=== PATIENT | male | born 1945 | race Caucasian/White ===

== ENCOUNTER 2019-08-20 06:39 | Emergency (ER) | payer MEDICARE ==
--- NOTE | 2019-08-20 07:25 | ED ---
Throat Pain/Nasal Congestion - HPI Summary HPI Summary: 74 year old M presenting to [facility] accompanied by female frame fixer complains of difficulty breathing since 2 months ago, worse since yesterday. Pt is experiencing congested sinuses, difficulty with daily life activities, and depression with multiple trips to physicians in the past 2 months per female frame fixer. ENT reported no structural issues with sinuses. Female frame fixer also states pt has reduced hearing capabilities because the pt does not wear hearing aids due to congestion. Pt reports sore throat, discomfort in the posterior head that radiates to his sinuses, vomiting, lightheadedness, and nausea since yesterday. He denies fever and pain. Hx of HTN, hypercholesterolemia, sinus infections, and melanoma with removal from 10 yrs ago for which there has been no problems since. SHx of no smoking, occasional light alcohol use, and a sedentary lifestyle per female frame fixer. The patient rates the pain 0/10 in severity. Symptoms aggravated by nothing. Symptoms alleviated by over the counter nasal spray. Tylenol sinus has had no effect and the pt is not on antihistamines. Medications reviewed. Allergies noted. - History of Current Complaint Chief Complaint: EDDizziness Time Seen by Provider: 08/20/19 06:54 Hx Obtained From: Patient, Family/Global Expansion Sales Director Onset/Duration: Lasting Weeks, Still Present, Worse Since - yesterday 08/19/2019 Severity: Worse Since: - 08/19/2019 Associated Signs And Symptoms: Positive: Negative - no fever, Sinus Discomfort - Sinus congestion for 2 months Cough: Other: - Emesis since yesterday 08/19/2019 - Allergies/Home Medications Allergies/Adverse Reactions: Allergies Allergy/AdvReac Type Severity Reaction Status Date / Time No Known Allergies Allergy Verified 08/20/19 06:41 Home Medications: Home Medications Amlodipine Besylate [Norvasc] 5 mg PO DAILY 08/20/19 [History Confirmed 08/20/19 ] Aspirin 81 mg PO DAILY 08/20/19 [History Confirmed 08/20/19] Atorvastatin* [Lipitor*] 40 mg PO DAILY 08/20/19 [History Confirmed 08/20/19] Cholecalciferol TAB* [Vitamin D TAB*] 1,000 unit PO DAILY 08/20/19 [History Confirmed 08/20/19] Lisinopril [Zestril 40 MG-] 40 mg PO DAILY 08/20/19 [History Confirmed 08/20/19] Metoprolol Tartrate TAB* [Lopressor TAB*] 25 mg PO BID 08/20/19 [History Confirmed 08/20/19] glipiZIDE [Glipizide ER] 2.5 mg PO DAILY 08/20/19 [History Confirmed 08/20/19] hydrALAZINE TAB* [Apresoline TAB*] 25 mg PO TID 08/20/19 [History Confirmed ] metFORMIN* [Glucophage 500 MG TAB *] 500 mg PO BID 08/20/19 [History Confirmed 08/20/19] PMH/Surg Hx/FS Hx/Imm Hx Previously Healthy: Yes Endocrine/Hematology History: Reports: Hx Diabetes Cardiovascular History: Reports: Hx Hypercholesterolemia, Hx Hypertension - Cancer History Cancer Type, Location and Year: Melanoma, 2009 - Surgical History Surgical History: Yes - melanoma removal - Immunization History Date of Influenza Vaccine: Fall 2018 Infectious Disease History: No Infectious Disease History: Denies: Traveled Outside the [place] in Last 30 Days - Family History Known Family History: Positive: Diabetes - Twin brother - Social History Alcohol Use: Occasionally Substance Use Type: Reports: None Smoking Status (MU): Never Smoked Tobacco Review of Systems Positive: Other - Dizziness. Negative: Fever ENT: Other - positive - sinus congestion Positive: Sore Throat Positive: Shortness Of Breath Positive: Vomiting, Nausea Positive: Headache - pressure from back of head to sinuses All Other Systems Reviewed And Are Negative: Yes Physical Exam - Summary Physical Exam Summary: Constitutional: Well-developed, Well-nourished, Alert. (-) Distressed Skin: Warm, Dry HENT:Atraumatic, maxillary sinus congestion bilaterally, nasal congestion Eyes: Conjunctiva normal Neck: Musculoskeletal ROM normal neck. (-) JVD, (-) Stridor, (-) Tracheal deviation Cardio: Rhythm regular, rate normal, Heart sounds normal; Intact distal pulses; Radial pulses are 2+ and symmetric. (-) Murmur Pulmonary/Chest wall: Effort normal. (-) Respiratory distress, (-) Wheezes, (-) Rales Abd: Soft, (-) tenderness, (-) Distension, (-) Guarding, (-) Rebound Musculoskeletal: (-) Edema Lymph: (-) Cervical adenopathy Neuro: Alert, Oriented x3 Psych: Mood and affect Normal Triage Information Reviewed: Yes Vital Signs On Initial Exam: Initial Vitals Temp Pulse Resp BP Pulse Ox 97.6 F 55 20 181/87 97 08/20/19 06:41 08/20/19 06:41 08/20/19 06:41 08/20/19 06:41 08/20/19 06:41 Vital Signs Reviewed: Yes Procedures - Sedation Patient Received Moderate/Deep Sedation with Procedure: No Diagnostics - Vital Signs Vital Signs Temp Pulse Resp BP Pulse Ox 08/20/19 07:03 53 14 174/82 95 08/20/19 07:00 53 94 08/20/19 06:59 53 92 08/20/19 06:41 97.6 F 55 20 181/87 97 - Laboratory Result Diagrams: 08/20/19 07:45 08/20/19 07:45 Lab Statement: Any lab studies that have been ordered have been reviewed, and results considered in the medical decision making process. - CT MAXILLOFACIAL CT CT Interpretation Completed By: Radiologist Summary of CT Findings: IMPRESSION: Mucosal thickening of the nasal cavity throughout with extension of mucosal. thickening into the ostiomeatal units bilaterally. Right maxillary sinus mucosal. Thickening is noted with several ethmoid air cells thickening. No abscess is identified. THIS REPORT WAS REVIEWED ED PHYSICIAN. - EKG 07:30 Cardiac Rate: Bradycardia EKG Rhythm: Sinus Bradycardia Summary of EKG Findings: EKG at 0730 reveals sinus bradychardia with rate of 53 BPM, no STEMI. This EKG was reviewed and interpreted by Dr. Muñiz. EENT Course/Dx - Course Assessment/Plan: Patient is here with 2 months of sinus congestion. Patient is overall well-appearing but his symptoms have gotten to the point that he becomes depressed from his quality of life. Patient is tried antibiotics twice with no improvement. Patient had a CT scan of his sinuses which showed no abscess, tumor, or evidence of sinusitis. Patient did have some mucosal thickening in his nose. Patient was started on prednisone and a daily allergy pill as these are likely allergic in nature. Patient hard he hasn't allergies name and will call them for an appointment. Patient is also encouraged to follow up with his ENT Dr. 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 Leal. Please return to ED for high fever, pus drainage from your sinuses, or any other concerning or worsening symptoms. Take your medications as prescribed and continue using your nasal lavage. - Billing Disposition and Condition Condition: STABLE Disposition: Home - Attestation Statements Document Initiated by Ines: Yes Documenting Scribe: AMOS PEARL Provider For Whom Ines is Documenting (Include Credential): SHIREEN MUÑIZ MD Scribe Attestation: AMOS Kline, scribed for SHIREEN MUÑIZ MD on 08/21/19 at 0722. Scribe Documentation Reviewed: Yes Provider Attestation: The documentation as recorded by the AMOS dunham accurately reflects the service I personally performed and the decisions made by , SHIREEN MUÑIZ MD Status of Scribe Document: Viewed
--- OUTSIDE RECORDS SUMMARY | 2019-08-20 07:40 | XMS REPORT | Continuity of Care Document ---
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 Problems Active Problems Provider Date Impacted cerumen Liseth Shah MD Onset: 02/28/2019 Vitamin D deficiency Liseth Shah MD Onset: 02/28/2019 Hyperlipidemia Liseth Shah MD Onset: 02/28/2019 Type 2 diabetes mellitus Liseth Shah MD Onset: 02/28/2019 Essential hypertension Liseth Shah MD Onset: 02/28/2019 Social History Type Date Description Comments Sex Unknown ETOH Use Rarely consumes alcohol Tobacco Use Start: Unknown Patient has never smoked Smoking Status Reviewed: 07/01/19 Patient has never smoked Exercise Type/Frequency Exercises rarely Allergies, Adverse Reactions, Alerts Description No Known Drug Allergies Medications Active Medications SIG Qnty Indications Ordering Date Provider Amlodipine Besylate 1 by mouth every 90tabs Liseth Shah MD 02/28/2019 day 5mg Tablets Aspirin 81 1 by mouth every 90tabs Liseth Shah MD 02/28/2019 81mg day Tablets Vitamin D take 2,000 units 90taconcepcion Shah MD 02/28/2019 (Cholecalciferol) by mouth daily 1000Unit Tablets Glipizide ER take 2.5 mg by 90taconcepcion Shah MD 02/28/2019 2.5mg mouth daily (with Tablets ER 24HR breakfast) Swallow whole. Do not crush, break, or chew Lisinopril take 40 mg by 90taconcepcion Shah MD 02/28/2019 40mg mouth daily Tablets Metoprolol Succinate Take 25mg by mouth 90tabs Liseth Shah MD 02/28/2019 ER two times daily 25mg Tablets ER 24HR Metformin HCL Take 500mg by 180tabs Liseth Shah MD 02/28/2019 500mg mouth two times Tablets daily Atorvastatin Calcium Take 40mg by mouth 30tabs Liseth Shah MD 02/28/2019 daily (with 20mg Tablets dinner) Hydralazine HCL 1 by mouth three 90tabs Liseth Shah MD 02/28/2019 25mg times a day Tablets [place] Nasal [place] 1 spray each 45ml Liseth Shah MD 02/28/2019 nostrile as needed 0.65% Solution for sinus congestion Bi-Lateral Hearing Liseth Shah MD 02/28/2019 Aides Immunizations Description No Information Available Vital Signs Date Vital Result Comment 07/01/2019 10:26am Height 67 inches 5'7" Weight 153.00 lb Heart Rate 50 /min BP Systolic Sitting 131 mmHg BP Diastolic Sitting 71 mmHg Body Temperature 97.2 F O2 % BldC Oximetry 97 % BMI (Body Mass Index) 24.0 kg/m2 02/28/2019 2:59pm Height 67 inches 5'7" Weight 159.38 lb Heart Rate 56 /min BP Systolic Sitting 155 mmHg BP Diastolic Sitting 69 mmHg Body Temperature 97.5 F O2 % BldC Oximetry 97 % BMI (Body Mass Index) 25.0 kg/m2 Results Test Acquired Facility Test Result H/L Range Note Date Laboratory test 06/24/2019 [facility] Hemoglobin A1c 6.5 % High 4.0-5.[address] (Glyco HGB) [place] [address] [phone] Urine 06/24/2019 [facility] Ur Microalbumin < 15.[address] (mg/L) mg/[place] [address] [phone] Urine Creatinine 106.85 mg/dL Urine Microalbumin/Creatinine TNP <31 2 Comp Metabolic 06/24/2019 [facility] Sodium 142 mmol/L Normal 135-[address] [place] [address] [phone] Potassium 4.2 mmol/L Normal 3.5-5.0 Chloride 105 mmol/L Normal 101-111 Co2 Carbon Dioxide 30 mmol/L Normal 22-32 Anion Gap 7 mmol/L Normal 2-11 Glucose 128 mg/dL High 70-100 Blood Urea Nitrogen 22 mg/dL Normal 6-24 Creatinine 1.12 mg/dL Normal 0.67-1.17 BUN/Creatinine Ratio 19.6 Normal 8-20 Calcium 10.5 mg/dL High 8.6-10.3 Total Protein 6.3 g/dL Low 6.4-8.9 Albumin 4.4 g/dL Normal 3.2-5.2 Globulin 1.9 g/dL Low 2-4 Albumin/Globulin Ratio 2.3 Normal 1-3 Total Bilirubin 0.40 mg/dL Normal 0.2-1.0 Alkaline Phosphatase 57 U/L Normal 34-104 Alt 21 U/L Normal 7-52 Ast 16 U/L Normal 13-39 Egfr Non- 64.1 >60 Egfr 77.5 >60 3 1 Therapeutic target for the treatment of diabetes mellitus patients is <7% HBA1C, and in selective patients <6.0%. Please refer to [place] [employer] Association diabetic care guidelines for further information. 2 Unable to calculate due to low microalbumin 3 Because ethnic data is not always readily available, this report includes an eGFR for both -Americans and non- Americans. The National Kidney Disease Education Program (NKDEP) does not endorse the use of the MDRD equation for patients that are not between the ages of 18 and 70, are , have extremes of body size, muscle mass, or nutritional status, or are non- or non-. According to the National Kidney Foundation, irrespective of diagnosis, the stage of the disease is based on the level of kidney function: Stage Description GFR(mL/min/1.73 m(2)) 1 Kidney damage with normal or decreased GFR 90 2 Kidney damage with mild decrease in GFR 60-89 3 Moderate decrease in GFR 30-59 4 Severe decrease in GFR 15-29 5 Kidney failure <15 (or dialysis) Procedures Description No Information Available Medical Devices Description No Information Available Encounters Type Date Location Provider Dx Diagnosis Office Visit 02/28/2019 [facility] Liseth Shah MD I10 Essential ( primary) 3:00p Medicine - [facility] hypertension E11.9 Type 2 diabetes mellitus without complications E78.5 Hyperlipidemia, unspecified E55.9 Vitamin D deficiency, unspecified H61.21 Impacted cerumen, right ear Assessments Date Code Description Provider 07/01/2019 [facility] (primary) hypertension Liseth Shah MD 07/01/2019 J01.90 Acute sinusitis, unspecified Liseth Shah MD 07/01/2019 Z85.820 Personal history of malignant melanoma of skin Liseth Shah MD 07/01/2019 E83.52 Hypercalcemia Liseth Shah MD 02/28/2019 I[facility] Essential (primary) hypertension Liseth Shah MD 02/28/2019 E11.9 Type 2 diabetes mellitus without complications Liseth Shah MD 02/28/2019 E78.5 Hyperlipidemia, unspecified Liseth Shah MD 02/28/2019 E55.9 Vitamin D deficiency, unspecified Liseth Shah MD 02/28/2019 H61.21 Impacted cerumen, right ear Liseth Shah MD Plan of Treatment Future Appointment(s):01/01/2020 11:20 am - Liseth Shah MD at [facility] Internal Medicine - [facility]07/01/2019 - Liseth Shah MDI10 Essential (primary) hypertensionComments:BP controlled( hydralazine 25 tid/metoprolol 25 bid/ amlodipine 5/lisinopril 40)Please do continue tomonitor it at homeFollow up:F/U 6 months for AWVJ01.90 Acute sinusitis, unspecifiedComments:Please continue flonaseTry to take mucinex for the next 23 days and let me know if it is not obtbinqE37.820 Personal history of malignant melanoma of skinReferral:Hardik Stout MD, GmfunnkfrbmO61.52 HypercalcemiaComments:Please get labs done in [place] Functional Status Description No Information Available Mental Status Description No Information Available Referrals Refer to Dr Reason for Referral Status Appt Date Hardik Stout MD Sent [address], [place] [address] [phone] Eric Leal MD Closed 03/18/2019 [address] [place] [address] [phone]
--- OUTSIDE RECORDS SUMMARY | 2019-08-20 07:40 | XMS REPORT | Continuity of Care Document ---
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 Problems Active Problems Provider Date Impacted cerumen [...] Patient has never smoked Smoking Status Reviewed: 08/18/19 Patient has never smoked Exercise Type/Frequency Exercises rarely Allergies, Adverse Reactions, Alerts Description No Known Drug Allergies Medications Active Medications SIG Qnty Indications Ordering Date Provider Amlodipine Besylate 1 by mouth every 90tabs Liseth Shah MD 02/28/2019 day 5mg Tablets Aspirin 81 1 by mouth every 90tabs Liseth hSah MD 02/28/2019 81mg day Tablets Vitamin D take 2,000 units 90taconcepcion Shah MD 02/28/2019 (Cholecalciferol) by mouth daily 1000Unit Tablets Glipizide ER take 2.5 mg by 90taconcepcion Shah MD 02/28/2019 2.5mg mouth daily (with Tablets ER 24HR breakfast) Swallow whole. Do not crush, break, or chew Lisinopril take 40 mg by 90taconcepcion Shah MD 02/28/2019 40mg mouth daily Tablets Metoprolol Succinate take 25mg by mouth 180tabs Liseth Shah MD 2018 ER two times daily 25mg Tablets ER 24HR Metformin HCL Take 500mg by 180taconcepcion Shah MD 02/28/2019 500mg mouth two times Tablets daily Atorvastatin Calcium Take 40mg by mouth 30tabs Liseth Shah MD 02/28/2019 daily (with 20mg Tablets dinner) Hydralazine HCL 1 by mouth three 90tabs Liseth Shah MD 02/28/2019 25mg times a day Tablets [place] Nasal [place] 1 spray each 45ml Liseth Shah MD 02/28/2019 nostrile as needed 0.65% Solution for sinus congestion Bi-Lateral Hearing Liseht Shah MD 02/28/2019 Aides History Medications Amoxicillin 1 by mouth three 30caps Liseth Shah MD 07/04/2019 - 500mg Capsules times a day 07/17/2019 Immunizations Description No Information Available Vital Signs Date Vital Result Comment 08/18/2019 3:24pm Height 67 inches 5'7" Weight 160.00 lb Heart Rate 58 /min BP Systolic 156 mmHg R arm BP Diastolic 74 mmHg R arm BP Systolic Sitting 158 mmHg L arm BP Diastolic Sitting 68 mmHg L arm Body Temperature 97.0 F O2 % BldC Oximetry 98 % BMI (Body Mass Index) 25.1 kg/m2 07/17/2019 10:55am Height 67 inches 5'7" Weight 156.00 lb Heart Rate 64 /min BP Systolic Sitting 148 mmHg BP Diastolic Sitting 75 mmHg Body Temperature 96.9 F O2 % BldC Oximetry 97 % BMI (Body Mass Index) 24.4 kg/m2 Results Test Acquired Facility Test Result H/L Range Note Date Laboratory test 06/24/2019 [facility] Hemoglobin A1c 6.5 % High 4.0-5.[address] (Glyco HGB) [place] [address] [phone] Urine 06/24/2019 [facility] Ur Microalbumin < 15.[address] (mg/L) mg/[place] [address] [phone] Urine Creatinine 106.85 mg/dL Urine Microalbumin/Creatinine TNP <31 2 Comp Metabolic 06/24/2019 [facility] Sodium 142 mmol/L Normal 135-145 Panel [address] [place] [address] [phone] Potassium 4.2 mmol/L Normal 3.5-5.0 Chloride 105 [...] in selective patients <6.0%. Please refer to [place] [employer] diabetic care guidelines for further [...] Date Location Provider Dx Diagnosis Office Visit 07/17/2019 [facility] Internal Liseth Shah MD J01.90 [facility]2019 [facility] Internal Liseth Shah MD I10 Essential ( primary[facility] J01.90 Acute sinusitis, unspecified Z85.820 Personal history of malignant melanoma of skin E83.52 Hypercalcemia Office Visit 02/28/2019 3:00p [facility] Internal Liseth Shah, I10 Essential ( primary) Medicine - [facility] hypertension E11.9 Type 2 diabetes mellitus without complications E78.5 Hyperlipidemia, unspecified E55.9 Vitamin D deficiency, unspecified H61.21 Impacted cerumen, right ear Assessments Date Code Description Provider 08/18/2019 J01.90 Acute sinusitis, unspecified Liseth Shah MD 08/18/2019 [facility] (primary) hypertension Liseth Shah MD 07/17/2019 J01.90 Acute sinusitis, unspecified Liseth Shah MD 07/01/2019 [facility] Essential (primary) hypertension Liseth Shah MD 07/01/2019 J01.90 Acute sinusitis, unspecified Liseth Shah MD 07/01/2019 Z85.820 Personal history of malignant melanoma of skin Liseth Shah MD 07/01/2019 E83.52 Hypercalcemia Liseth Shah MD 02/28/2019 [facility] (primary) hypertension Liseth Shah MD 02/28/2019 E11.9 Type 2 diabetes mellitus without complications Liseth Shah MD 02/28/2019 E78.5 Hyperlipidemia, gastonified Liseth Shah MD 02/28/2019 E55.9 Vitamin D deficiency, unspecified Liseth Shah MD 02/28/2019 H61.21 Impacted cerumen, right ear Liseth Shah MD Plan of Treatment Future Appointment(s):09/16/2019 11:00 am - Toña Oquendo MD at [facility] Kngtnvupidx13/04/2020 11:20 am - Liseth Shah MD at [facility] Internal Medicine - [facility]08/18/2019 - Liseth Shah MDJ01.90 Acute sinusitis, unspecifiedNew Xrays: Paranasal Sinuses 3+ VWS, Ordered: 08/18/19Referral:[facility], Allergy & MdwjhrwiefB94 Essential (primary) hypertensionComments :BP running high Functional Status Description No Information Available Mental Status Description No Information Available Referrals Refer to Reason for Referral Status Appt Date [facility] Recurrent sinusitis Created [address] [place] [address] [phone] Hardik Stout MD Sent 09/16/2019 [address] [facility], [place] [address] [phone] Eric Leal MD Closed 03/18/2019 [address] [place] [address] [phone]
--- OUTSIDE RECORDS SUMMARY | 2019-08-20 07:40 | XMS REPORT | Continuity of Care Document ---
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 Problems Active Problems Provider Date Impacted cerumen [...] Patient has never smoked Smoking Status Reviewed: 07/17/19 Patient has never smoked Exercise Type/Frequency Exercises [...] 24HR Metformin HCL Take 500mg by 180taconcepcion hSah MD 02/28/2019 500mg mouth two times Tablets daily Atorvastatin Calcium Take 40mg by mouth 30tabs Liseth Shah MD 02/28/2019 daily (with 20mg Tablets dinner) Hydralazine HCL 1 by mouth three 90tabs Liseth Shah MD 02/28/2019 25mg times a day Tablets [place] Nasal [place] 1 spray each 45ml Liseth Shah MD 02/28/2019 nostrile as needed 0.65% Solution for sinus congestion Bi-Lateral Hearing Liseth Shah MD 02/28/2019 Aides History Medications Amoxicillin 1 by mouth three 30caps Liseth Shah MD 07/04/2019 - 500mg Capsules times a day 07/17/2019 Immunizations Description No Information Available Vital Signs Date Vital Result Comment 07/17/2019 10:55am Height 67 inches 5'7" Weight 156.00 lb Heart Rate 64 /min BP Systolic Sitting 148 mmHg BP Diastolic Sitting 75 mmHg Body Temperature 96.9 F O2 % BldC Oximetry 97 % BMI (Body Mass Index) 24.4 kg/m2 07/01/2019 10:26am Height 67 inches 5'7" Weight 153.00 lb Heart Rate 50 /min BP Systolic Sitting 131 mmHg BP Diastolic Sitting 71 mmHg Body Temperature 97.2 F O2 % BldC Oximetry 97 % BMI (Body Mass Index) 24.0 kg/m2 Results Test Acquired Facility Test Result H/L Range Note Date Laboratory test 06/24/2019 [facility] Hemoglobin A1c 6.5 % High 4.0-5.[address] (Glyco HGB) [place] [address] [phone] Urine 06/24/2019 [facility] Ur Microalbumin < 15.[address] (mg/L) mg/[place] [address] [phone] Urine Creatinine 106.85 mg/dL Urine Microalbumin/Creatinine TNP <31 2 Comp Metabolic 06/24/2019 [facility] Sodium 142 mmol/L Normal 135-[address] [place] [address] [phone] Potassium 4.2 mmol/L Normal 3.5-5.0 Chloride 105 [...] in selective patients <6.0%. Please refer to [place] [employer] diabetic care guidelines for further [...] Date Location Provider Dx Diagnosis Office Visit 07/01/2019 [facility] Internal Liseth Shah MD I10 Essential ( primary) 10:40a Medicine - [facility] hypertension J01.90 Acute sinusitis, unspecified Z85.820 Personal history of malignant melanoma of skin E83.52 Hypercalcemia Office Visit 02/28/2019 3:00p [facility] Patty Aguilar Essential ( primary) Medicine - [facility] hypertension E11.9 Type 2 diabetes mellitus without complications E78.5 Hyperlipidemia, unspecified E55.9 Vitamin D deficiency, unspecified H61.21 Impacted cerumen, right ear Assessments Date Code Description Provider 07/17/2019 J01.90 Acute sinusitis, unspecified Liseth Shah MD 07/01/2019 [facility] (primary) hypertension Liseth Shah MD 07/01/2019 J01.Natividad Acute sinusitis, unspecified Liseth Shah MD 07/01/2019 [...] 11:00 am - Toña Oquendo MD at [facility] Nfkdpaojfku32/04/2020 11:20 am - Liseth Shah MD at [facility] Internal Medicine - [facility]07/17/2019 - Liseth Shah MDJ01.90 Acute sinusitis, unspecifiedComments: Try flonase Try netipotTry sudafed just once a day to see if that will help your congestion Functional Status Description No Information Available Mental Status Description No Information Available Referrals Refer to Reason for Referral Status Appt Date Hardik Stout MD Sent [address] [facility], [address] [place] [id number] [phone] Eric Leal MD Closed 03/18/2019 [address] [place] [id number] [phone]
--- OUTSIDE RECORDS SUMMARY | 2019-08-20 07:40 | XMS REPORT | Continuity of Care Document ---
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 Service [phone] Problems Active Problems Provider Date Impacted cerumen [...] MD 02/28/2019 25mg times a day Tablets Harris Nasal [place] 1 spray each 45ml Liseth Shah MD [...] H/L Range Note Date Laboratory test 06/24/2019 [facility] Hemoglobin A1c 6.5 % High 4.0-5.[address] (Glyco HGB) [place] [address] [phone] Urine 06/24/2019 [facility] Ur Microalbumin < 15.[address] (mg/L) mg/[place] [address] [phone] Urine Creatinine 106.85 mg/dL Urine Microalbumin/Creatinine TNP <31 2 Comp Metabolic 06/24/2019 [facility] Sodium 142 mmol/L Normal 135-145 Panel [address] [place] [address] [phone] Potassium 4.2 mmol/L Normal 3.5-5.0 Chloride 105 [...] in selective patients <6.0%. Please refer to [place] [employer] diabetic care guidelines for further [...] Location Provider Dx Diagnosis Office Visit 07/17/2019 [facility] Liseth Shah MD J01.90 [facility]2019 [facility] Liseth Shah MD I10 Essential ( primary[facility] J01.90 Acute sinusitis, unspecified Z85.820 Personal history of malignant melanoma of skin E83.52 Hypercalcemia Office Visit 02/28/2019 3:00p [facility] Internal Liseth Shah, I10 Essential ( primary) Medicine - [facility] hypertension E11.9 Type 2 diabetes mellitus [...] 11:00 am - Toña Oquendo MD at [facility] Ynhdcjmeofv78/04/2020 11:20 am - Liseth Shah MD at [facility] Internal Medicine - [facility]08/18/2019 - Liseth Shah MDJ01.90 Acute sinusitis, unspecifiedNew Xrays: Paranasal Sinuses 3+ VWS, Ordered: 08/18/19Referral:[facility], Allergy & HjmrujxtetK81 Essential (primary) hypertensionComments :BP running high Functional Status Description No Information Available Mental Status Description No Information Available Referrals Refer to Reason for Referral Status Appt Date [facility] Recurrent sinusitis Created [address] [place] [address] [phone] Hardik Stout MD Sent 09/16/[address] [facility], [place] [address] [phone] Eric Leal MD Closed 03/18/2019 [address] [place] [address] [phone]
[2019-08-20 07:59] LABS: ABS Eosinophils 0.5 10^3/ul (0-0.6); ABS Lymphocytes 1.4 10^3/ul (1.0-4.8); ABS Monocytes 0.6 10^3/ul (0-0.8); ABS Neutrophils 7.1 10^3/ul (1.5-7.7); Eosinophil % 4.9 %; Hematocrit 41 % (42-52); Lymphocyte % 14.6 %; Mean Corpuscular HGB Conc 34 g/dL (31-36); Mean Corpuscular Hemoglobin 30 pg (27-31); Mean Corpuscular Volume 88 fL (80-94); Mean Platelet Volume 7.9 fL (7.4-10.4); Platelet Count 172 10^3/uL (150-450); Red Blood Count 4.63 10^6 /uL (4.18-5.48); Red Cell Distribution Width 14 % (10-15); White Blood Count 9.7 10^3/uL (3.5-10.8)
[2019-08-20 08:18] LABS: Albumin 4.1 g/dL (3.2-5.2); Albumin/Globulin Ratio 1.6 (1-3); BUN/Creatinine Ratio 18.1 (8-20); Calcium 10.1 mg/dL (8.6-10.3); EGFR African American 83.5 (>60); Globulin 2.5 g/dL (2-4); Phosphorus 2.4 mg/dL (2.5-5.0); Potassium 3.6 mmol/L (3.5-5.0); Total Bilirubin 0.5 mg/dL (0.2-1.0); Total Protein 6.6 g/dL (6.4-8.9)
[2019-08-20] MEDS ORDERED: Ondansetron INJ* 2 MG/ML VIAL IV ONE (08:38)
[2019-08-20] MEDS ORDERED: Iodixanol* (CONTRAST) 320 MG/ML 100 ML SDV IV ONE (08:40)
[2019-08-20 09:51] VITALS: BP 166/78
== END 2019-08-20 09:51 | disposition home or self-care (01) ==
LOC: ED 06:39
DX: J32.9 Chronic sinusitis, unspecified (principal); R00.1 Bradycardia, unspecified; R11.2 Nausea with vomiting, unspecified; F32.9 Major depressive disorder, single episode, unspecified; E11.9 Type 2 diabetes mellitus without complications; Z79.84 Long term (current) use of oral hypoglycemic drugs; I10 Essential (primary) hypertension; E78.00 Pure hypercholesterolemia, unspecified; Z79.82 Long term (current) use of aspirin
CPT/HCPCS: 36415; 70487; 80053; 82330; 83970; 84100; 85025; 93005; 96374; 99283; J2405; J7512; Q9967

== ENCOUNTER 2022-08-15 08:48 | Observation (INO) ==
[~2022-08-15 08:48] MED LIST: Buffered Lidocaine 1% SYRIN 1 ml INTRADERM ONE; Dexamethasone IV 4 MG/ML VIAL 1 ml VIAL ONE; Lactated Ringers 1000 ml BAG 1,000 ML IV SCH; Naloxone 0.4 mg VIAL 0.4 mg/ml 1 ml VIAL IV PRN; Ondansetron 4 mg VIAL 2 MG/ML 2 ml VIAL IV PRN; Ondansetron 4 mg VIAL 2 MG/ML 2 ml VIAL ONE; fentaNYL 100 mcg/2 ml 50 MCG/ML VIAL IV PRN; oxyCODONE/Acetamin 5/325 mg TAB PO PRN
[2022-08-15] MEDS ORDERED: ceFAZolin 2 GM PREMIX 2 GM/50 ML BAG ONE (09:36)
[2022-08-15] MEDS ORDERED: Propofol 10 MG/ML 20 ML BTL ONE (09:51)
[2022-08-15] MEDS ORDERED: fentaNYL 100 mcg/2 ml 50 MCG/ML VIAL ONE (10:03)
[2022-08-15] MEDS ORDERED: ROPIVACAINE 5 MG/ML 30 ML BTL (0.5%) ONE (10:03)
[2022-08-15] MEDS ORDERED: Midazolam 2 mg/2 ml VIAL 1 mg/ml 2 ml VIAL (2 mg) ONE (10:03)
[2022-08-15] MEDS ORDERED: Ropivacaine 5 MG/ML 20 ML VIAL 0.5% (100 MG) ONE (10:22)
[2022-08-15] MEDS ORDERED: Morphine 2 MG/ML SYRINGE IV PRN (12:25)
[2022-08-15] MEDS ORDERED: Ondansetron 4 mg VIAL 2 MG/ML 2 ml VIAL IV PRN (12:25)
[2022-08-15] MEDS ORDERED: Ondansetron ODT 4 mg TAB 4 MG TAB PO PRN (12:25)
[2022-08-15] MEDS ORDERED: Lactulose 30 ml UDC PO PRN (12:25)
[2022-08-15] MEDS ORDERED: Magnesium Hydroxide LIQ 30 ML UDC PO PRN (12:25)
[2022-08-15] MEDS ORDERED: ceFAZolin 1 GM ADVAN 1 GM in NS 0.9% 50 ML 50 ML IVPB SCH (13:00)
[2022-08-15] MEDS ORDERED: oxyCODONE/Acetamin 5/325 mg TAB ONE (15:59)
[2022-08-15] MEDS ORDERED: Acetaminophen IV 1 GM/100ML 1,000 MG/100 ML BAG IV ONE (16:09)
[2022-08-15] MEDS: Lactated Ringers 1000 ml BAG 1,000 ML IV SCH (16:30)
[2022-08-15] MEDS: Magnesium Hydroxide LIQ 30 ML UDC PO SCH (21:17)
[2022-08-15] MEDS: ceFAZolin 1 GM ADVAN 1 GM in NS 0.9% 50 ML 50 ML IVPB SCH (21:20)
[2022-08-16] MEDS: Lactated Ringers 1000 ml BAG 1,000 ML IV SCH (02:43)
[2022-08-16] MEDS: ceFAZolin 1 GM ADVAN 1 GM in NS 0.9% 50 ML 50 ML IVPB SCH (06:13)
[2022-08-16 07:15] LABS: Hematocrit 35 % (42-52); Hemoglobin 11.7 g/dL (14.0-18.0); Mean Platelet Volume 8.4 fL (7.4-10.4); Platelet Count 162 10^3/uL (150-450)
[2022-08-16 07:45] LABS: Calcium 9.6 mg/dL (8.6-10.3); Potassium 4.6 mmol/L (3.5-5.0); eGFR CKD-EPI 68.4 (>60)
[2022-08-16] MEDS ORDERED: Vitamin THERAPEUTIC TAB PO SCH (09:00)
[2022-08-16 11:09] VITALS: BP 135/57
[2022-08-16] MEDS: Magnesium Hydroxide LIQ 30 ML UDC PO SCH (12:43)
== END 2022-08-16 14:20 | disposition home or self-care (01) ==
LOC: SSU → AA 08:48 → INTOOBSV 08:48
PROVIDERS: ADMIT Orthopaedic Surgery Adult Reconstructive Orthopaedic Surgery; ATTEND Orthopaedic Surgery Adult Reconstructive Orthopaedic Surgery